=== PATIENT | male | born 1985 | race Caucasian/White ===

== ENCOUNTER 2016-06-26 16:29 | Emergency (ER) | payer OTHER ==
--- NOTE | 2016-06-26 17:03 | RAD ---
FINGER LEFT COMPARISON: None HISTORY: Zuni screw embedded in the left little finger. FINDINGS: Views: Left hand PA. 2 spot views of the left little finger. Bones: No fracture. Joints: Normal Soft tissues: There is a concrete screw embedded in the distal left little finger soft tissues. There is a tiny piece of metal posterior to the head of the fourth metacarpal. IMPRESSION: 1. [place]uni screw embedded in the soft tissues of the distal left little finger. No bone abnormality. 2. Small piece of metal in the soft tissues posterior to the head of the fourth metacarpal.
== END 2016-06-26 17:19 | disposition home or self-care (01) ==
LOC: ED 16:29
DX: S61.241A Puncture wound with foreign body of left index finger without damage to nail, initial encounter (principal); W45.8XXA Other foreign body or object entering through skin, initial encounter; W29.8XXA Contact with other powered hand tools and household machinery, initial encounter; Y93.H3 Activity, building and construction; Y92.9 Unspecified place or not applicable